=== PATIENT | male | born 1965 | race Caucasian/White ===

== ENCOUNTER 2021-11-29 12:34 | Inpatient (IN) | payer OTHER ==
[~2021-11-29] VITALS: Ht 185.4 cm; Wt 131.5 kg
[2021-11-29 12:35] VITALS: BP_SYST 145
[2021-11-29] MEDS ORDERED: ASPIRIN 81 MG TAB.CHEW PO ONE (13:00)
[2021-11-29] MEDS ORDERED: NITROGLYCERIN 0.4 MG TAB.SUBL SL ONE (13:00)
[2021-11-29 13:10] LABS: BASOPHILS # (AUTO) 0.1 K/uL (0.0-0.2); BASOPHILS % (AUTO) 0.8 % (0.0-2.0); EOSINOPHILS % (AUTO) 0.5 % (0.0-4.0); HEMATOCRIT 44.3 % (36-54); HEMOGLOBIN 14.7 g/dL (14.0-18.0); LYMPHOCYTES # (AUTO) 2.1 K/uL (1.0-5.5); LYMPHOCYTES % (AUTO) 27.1 % (20.5-51.5); MEAN CORPUSCULAR HEMOGLOBIN 27 pg (27-31); MEAN CORPUSCULAR HGB CONC 33 % (32-36); MEAN CORPUSCULAR VOLUME 81 fL (79.0-98.0); MONOCYTES # (AUTO) 0.5 K/uL (0.0-1.0); MONOCYTES % (AUTO) 6.3 % (1.7-9.3); NEUTROPHILS # (AUTO) 5.1 K/uL (1.8-7.7); NEUTROPHILS % (AUTO) 65.3 % (40.0-70.0); PLATELET COUNT (AUTO) 216 K/uL (130-430); RED BLOOD CELL COUNT(AUTO) 5.49 MIL/uL (4.2-6.2); RED CELL DISTRIBUTION WIDTH 13.4 % (9.0-15.0); WHITE BLOOD COUNT (AUTO) 7.8 K/uL (4.8-10.8)
[2021-11-29] MEDS ORDERED: NACL 0.9% 2,000 ML IV ONE (13:15)
[2021-11-29 13:26] LABS: ANION GAP 6 (5-15); CALCIUM 9.6 mg/dL (8.4-11.0); CHLORIDE 94 mmol/L (98-107); CREATININE 1.34 mg/dL (0.55-1.30); POTASSIUM 3.7 mmol/L (3.5-5.1); UREA NITROGEN, BLOOD 20 mg/dL (8-21)
[2021-11-29] MEDS ORDERED: NITROGLYCERIN 1 INCH (GM) OINT. TP ONE (13:30)
[2021-11-29 13:35] LABS: ALANINE AMINOTRANSFERASE 29 U/L (12-78); ALBUMIN 3.6 g/dL (3.4-4.8); ASPARTATE AMINOTRANSFERASE 14 U/L (10-37); TOTAL BILIRUBIN 1.1 mg/dL (0.0-1.0)
[2021-11-29 13:37] LABS: GFR AFRICAN AMERICAN 71 mL/min (>90); GLUCOSE 491 mg/dL (70-99)
[2021-11-29 13:44] LABS: INR 0.9 (0.80-1.20); PROTHROMBIN TIME 9.5 SECS (9.5-12.5)
[2021-11-29 13:48] LABS: ACETONE, SERUM NEGATIVE (NEGATIVE)
[2021-11-29] MEDS ORDERED: NACL 0.9% 1,000 ML IV ONE (14:00)
[2021-11-29] MEDS ORDERED: LISI10TA29 PO (14:24)
[2021-11-29] MEDS ORDERED: LIP80 PO (14:24)
[2021-11-29] MEDS ORDERED: TAMS-11 PO (14:24)
[2021-11-29] MEDS ORDERED: GLIP2.5T3 PO (14:24)
[2021-11-29] MEDS ORDERED: ENOXAPARIN SODIUM 120 MG/0.8 ML SYRINGE SUBCUT ONE (15:00)
[2021-11-29] MEDS ORDERED: METOPROLOL SUCCINATE 25 MG TAB.SR.24H (TOPROL XL) PO ONE (15:15)
[2021-11-29] MEDS ORDERED: NITROGLYCERIN 0.4 MG TAB.SUBL SL PRN (15:15)
[2021-11-29] MEDS ORDERED: CEFEPIME 1 GM/VIAL (MAXIPIME) ONE (15:21)
[2021-11-29] MEDS ORDERED: CEFEPIME 1 GM in D5W 50 ML IV ONE (16:00)
[2021-11-29 19:40] VITALS: BP_SYST 143
[2021-11-29] MEDS ORDERED: ENOXAPARIN SODIUM 40 MG/0.4 ML SYRINGE SUBCUT SCH (21:00)
[2021-11-29] MEDS ORDERED: glipiZIDE XL 2.5 MG/TAB (GLUCOTROL XL) PO SCH ×2 (21:00)
[2021-11-29] MEDS ORDERED: CEFEPIME 1 GM in D5W 50 ML IV SCH (21:00)
[2021-11-29] MEDS ORDERED: *LOVENOX 1MG/KG Q12H/PHARMACY XX ONE (21:15)
[2021-11-29] MEDS: INSULIN REGULAR, HUMAN 100 UNITS/ML, 3 ML VIAL (humuLIN R) SUBCUT PRN (21:20)
[2021-11-29] MEDS: NACL 0.9% 1,000 ML IV SCH (21:21)
[2021-11-29] MEDS: METOPROLOL TARTRATE 50 MG TABLET PO SCH (21:21)
[2021-11-29] MEDS: ACETAMINOPHEN 325 MG TABLET PO PRN (21:34)
[2021-11-30] VITALS: BP_SYST 135
[2021-11-30] MEDS: ACETAMINOPHEN 325 MG TABLET PO PRN ×2 (03:44→21:26)
[2021-11-30] MEDS: NACL 0.9% 1,000 ML IV SCH (06:34)
[2021-11-30] MEDS: INSULIN REGULAR, HUMAN 100 UNITS/ML, 3 ML VIAL (humuLIN R) SUBCUT PRN ×4 (06:34→21:31)
[2021-11-30 07:14] LABS: PROTHROMBIN TIME 10.1 SECS (9.5-12.5)
[2021-11-30 07:22] LABS: CALCIUM 8.5 mg/dL (8.4-11.0); CREATININE 1.03 mg/dL (0.55-1.30); POTASSIUM 3.2 mmol/L (3.5-5.1)
[2021-11-30 07:34] LABS: BASOPHILS # (AUTO) 0.1 K/uL (0.0-0.2); BASOPHILS % (AUTO) 0.8 % (0.0-2.0); EOSINOPHILS # (AUTO) 0.1 K/uL (0.0-0.4); EOSINOPHILS % (AUTO) 1.4 % (0.0-4.0); HEMOGLOBIN 13.8 g/dL (14.0-18.0); LYMPHOCYTES # (AUTO) 1.6 K/uL (1.0-5.5); MEAN CORPUSCULAR HEMOGLOBIN 27 pg (27-31); MEAN CORPUSCULAR HGB CONC 34 % (32-36); MEAN CORPUSCULAR VOLUME 80 fL (79.0-98.0); MONOCYTES # (AUTO) 0.5 K/uL (0.0-1.0); MONOCYTES % (AUTO) 7.5 % (1.7-9.3); NEUTROPHILS # (AUTO) 4.4 K/uL (1.8-7.7); NEUTROPHILS % (AUTO) 66.3 % (40.0-70.0); PLATELET COUNT (AUTO) 184 K/uL (130-430); RED BLOOD CELL COUNT(AUTO) 5.11 MIL/uL (4.2-6.2); RED CELL DISTRIBUTION WIDTH 13.4 % (9.0-15.0); WHITE BLOOD COUNT (AUTO) 6.7 K/uL (4.8-10.8)
[2021-11-30 07:38] LABS: ALBUMIN 2.9 g/dL (3.4-4.8); THYROID STIMULATING HORMONE 1.87 uIu/mL (0.36-3.74)
[2021-11-30 08:00] VITALS: BP_SYST 135
[2021-11-30] MEDS ORDERED: LISINOPRIL 10 MG TABLET (PRINIVIL) PO SCH (09:00)
[2021-11-30] MEDS ORDERED: ENOXAPARIN SODIUM 120 MG/0.8 ML SYRINGE SUBCUT SCH (09:00)
[2021-11-30] MEDS ORDERED: ASPIRIN 81 MG TAB.CHEW PO SCH (09:00)
[2021-11-30] MEDS ORDERED: TAMSULOSIN HCL 0.4 MG CAP PO SCH (09:00)
[2021-11-30] MEDS: METOPROLOL TARTRATE 50 MG TABLET PO SCH ×2 (09:47→21:12)
[2021-11-30] MEDS: ATORVASTATIN 20 MG TABLET PO SCH (09:49)
[2021-11-30] MEDS ORDERED: POTASSIUM CHLORIDE 20 MEQ/PKT PACKET PO ONE ×2 (10:15→13:45)
[2021-11-30 13:28] VITALS: BP_SYST 137
[2021-11-30 13:29] VITALS: BP_SYST 137
[2021-11-30 18:47] VITALS: BP_SYST 147
[2021-11-30 19:40] VITALS: BP_SYST 147
[2021-12-01] VITALS: BP_SYST 133
[2021-12-01] MEDS: INSULIN REGULAR, HUMAN 100 UNITS/ML, 3 ML VIAL (humuLIN R) SUBCUT PRN (06:02)
[2021-12-01 08:00] VITALS: BP_SYST 151
[2021-12-01 08:14] LABS: CALCIUM 8.7 mg/dL (8.4-11.0); CREATININE 1.02 mg/dL (0.55-1.30); POTASSIUM 3.8 mmol/L (3.5-5.1)
[2021-12-01] MEDS: ATORVASTATIN 20 MG TABLET PO SCH (08:48)
[2021-12-01] MEDS ORDERED: METO-442 PO (11:41)
[2021-12-01] MEDS ORDERED: GLIP10TA11 PO (11:41)
[2021-12-01 12:00] VITALS: BP_SYST 124
[2021-12-01 12:22] VITALS: BP_SYST 124
== END 2021-12-01 13:45 | disposition home or self-care (01) | DRG 313 ==
LOC: SED 12:34 → STU 15:09
PROVIDERS: ADMIT Family Medicine; ATTEND Family Medicine
DX: R07.89 Other chest pain (principal); I24.8 Other forms of acute ischemic heart disease; E87.1 Hypo-osmolality and hyponatremia; Z20.822 Contact with and (suspected) exposure to COVID-19; I10 Essential (primary) hypertension; E86.0 Dehydration; E78.5 Hyperlipidemia, unspecified; E78.00 Pure hypercholesterolemia, unspecified; N40.0 Benign prostatic hyperplasia without lower urinary tract symptoms; E66.01 Morbid (severe) obesity due to excess calories; E11.9 Type 2 diabetes mellitus without complications; Z68.38 Body mass index [BMI] 38.0-38.9, adult; Z79.84 Long term (current) use of oral hypoglycemic drugs; Z87.891 Personal history of nicotine dependence; Z79.899 Other long term (current) drug therapy
CPT/HCPCS: 36415; 71045; 80048; 80053; 80061; 82009; 82962; 83036; 83735; 83880; 84443; 84484; 85025; 85379; 85610-TC; 85730-TC; 93005; 93306; 96372; 99285; G0378; J0692; J1650; J1815